=== PATIENT | female | born 1975 | race American Indian/Alaskan Native ===

== ENCOUNTER 2017-03-26 11:45 | Emergency (ER) | payer MEDICAID ==
[2017-03-26 11:53] VITALS: BP 120/91
[2017-03-26] MEDS ORDERED: Sodium Chloride 0.9% 1,000 ML IV ONE (12:29)
[2017-03-26] MEDS ORDERED: Ketorolac 30 MG/ML SDV IVPUSH ONE (12:29)
--- NOTE | 2017-03-26 12:45 | EDM.PDOC ---
ED HPI GENERAL MEDICAL PROBLEM - General Chief Complaint: Back Pain or Injury Stated Complaint: IN BY AMBULANCE Time Seen by Provider: 03/26/17 12:15 Source of Information: Reports: Patient History Limitations: Reports: No Limitations - History of Present Illness INITIAL COMMENTS - FREE TEXT/NARRATIVE: This 41 yo female patient was brought to the ED by [facility] due to right sided back pain. The patient reports her pain started about 2 days ago and has been getting worse since then. The patient reports she has taken Tylenol (1000 mg) with little to no symptom relief. The patient reports she has not been able to get out of bed due to increased pain. Onset: Gradual Duration: Day(s):, Constant, Getting Worse Location: Reports: Back (right flank pain) Quality: Reports: Ache, Sharp Severity: Moderate Improves with: Reports: None Worsens with: Reports: None Context: Reports: Other Associated Symptoms: Reports: No Other Symptoms Right Hip Pain Score (Numeric/FACES): 7 - Related Data Allergies Allergy/AdvReac Type Severity Reaction Status Date / Time No Known Allergies Allergy Verified 03/26/17 11:47 Home Meds: Home Meds metFORMIN [metFORMIN XR] 500 mg PO DAILY 01/03/14 [History] Mirtazapine [Remeron] 15 mg PO BEDTIME 10/15/14 [History] Gabapentin [Neurontin] 600 mg PO TID 05/26/16 [History] buPROPion HCl [Wellbutrin Sr] 300 mg PO DAILY 03/26/17 [History] Past Medical History Musculoskeletal History: Reports: Back Pain, Chronic, Fracture Psychiatric History: Reports: Anxiety, Depression Endocrine/Metabolic History: Reports: Diabetes, Type II - Infectious Disease History Infectious Disease History: Reports: Hepatitis C - Past Surgical History GI Surgical History: Reports: Cholecystectomy Social & Family History - Family History Family Medical History: Noncontributory - Tobacco Use Smoking Status *Q: Former Smoker Years of Tobacco use: 20 Used Tobacco, but Quit: Yes Month Tobacco Last Used: ? Second Hand Smoke Exposure: Yes - Caffeine Use Caffeine Use: Reports: Coffee - Alcohol Use Days Per Week of Alcohol Use: 0 - Recreational Drug Use Recreational Drug Use: Yes Drug Use in Last 12 Months: Yes Recreational Drug Type: Reports: Marijuana/Hashish Recreational Drug Use Frequency: Weekly ED ROS GENERAL - Review of Systems Review Of Systems: ROS reveals no pertinent complaints other than HPI. ED EXAM,LOWER BACK PAIN/INJURY - Physical Exam Exam: See Below Exam Limited By: No Limitations General Appearance: Alert, WD/WN, Moderate Distress Eye Exam: Bilateral Eye: EOMI, Normal Inspection, PERRL Ears: Normal External Exam, Normal Canal, Hearing Grossly Normal, Normal TMs Nose: Normal Inspection, Normal Mucosa, No Blood Throat/Mouth: Normal Inspection, Normal Lips, Normal Teeth, Normal Gums, Normal Oropharynx, Normal Voice, No Airway Compromise Head: Atraumatic, Normocephalic Neck: Normal Inspection, Supple, Non-Tender, Full Range of Motion Respiratory/Chest: No Respiratory Distress, Lungs Clear, Normal Breath Sounds, No Accessory Muscle Use, Chest Non-Tender Cardiovascular: Normal Peripheral Pulses, Regular Rate, Rhythm, No Edema, No Gallop, No JVD, No Murmur, No Rub GI/Abdominal: Normal Bowel Sounds, Soft, Tender (right side) (Female) Exam: Deferred Rectal (Female) Exam: Deferred Back Exam: CVA Tenderness (R) Extremities: Normal Inspection, Normal Range of Motion, Non-Tender, No Pedal Edema, Normal Capillary Refill Neurological: Alert, Normal Mood/Affect, Normal Dorsiflexion, CN II-XII Intact, Normal Plantar Flexion, Normal Gait, Normal Reflexes, No Motor/Sensory Deficits , Oriented x 3 Psychiatric: Normal Affect, Normal Mood Skin Exam: Warm, Dry, Intact, Normal Color, No Rash Lymphatic: No Adenopathy Course - Vital Signs Last Recorded V/S: Last Vital Signs Temp 36.5 C 03/26/17 11:50 Pulse 76 03/26/17 11:50 Resp 20 03/26/17 11:50 BP 120/91 H 03/26/17 11:50 Pulse Ox 99 03/26/17 11:50 - Orders/Labs/Meds Orders: Active Orders 24 hr Category Date Time Status Abdomen Pelvis wo Cont [CT] Urgent Exams 03/26/17 12:30 Ordered Lumbar Spine wo Cont [CT] Urgent Exams 03/26/17 12:30 Ordered Labs: Laboratory Tests 03/26/17 03/26/17 03/26/17 Range/Units 12:04 12:04 12:04 Urine Color Light yellow (YELLOW) Urine Appearance Turbid (CLEAR) Urine pH 6.5 (5.0-9.0) Ur Specific [place] 1.010 (1.005-1.030) Urine Protein Negative (NEGATIVE) Urine Glucose (UA) Negative (NEGATIVE) Urine Ketones Negative (NEGATIVE) Urine Occult Blood Trace-intact H (NEGATIVE) Urine Nitrite Positive H (NEGATIVE) Urine Bilirubin Negative (NEGATIVE) Urine Urobilinogen 0.2 (0.2-1.0) mg/dL Ur Leukocyte Esterase Moderate H (NEGATIVE) Urine RBC 5-10 H /HPF Urine WBC 20-30 H (0-5/HPF) /HPF Ur Epithelial Cells Moderate H /HPF Urine Bacteria Many H (0-FEW/HPF) /HPF Urine Mucus Few H /LPF Urine HCG, Qual Negative Urine Opiates Screen Negative (NEGATIVE) Ur Oxycodone Screen Negative (NEGATIVE) Urine Methadone Screen Negative (NEGATIVE) Ur Barbiturates Screen Negative (NEGATIVE) U Tricyclic Antidepress Negative (NEGATIVE) Ur Phencyclidine Scrn Negative (NEGATIVE) Ur Amphetamine Screen Negative (NEGATIVE) U Methamphetamines Scrn Negative (NEGATIVE) Urine MDMA Screen Negative (NEGATIVE) U Benzodiazepines Scrn Negative (NEGATIVE) Urine Cocaine Screen Negative (NEGATIVE) U Marijuana (THC) Screen Positive H (NEGATIVE) Meds: Medications Discontinued Medications Generic Name Dose Route Start Last Admin Trade Name Freq PRN Reason Stop Dose Admin Hydromorphone HCl 0.5 mg 03/26/17 13:32 03/26/17 13:37 Dilaudid IVPUSH 03/26/17 13:33 0.5 mg ONETIME ONE Administration Sodium Chloride 1,000 mls @ 999 mls/hr 03/26/17 12:29 03/26/17 12:42 Normal Saline IV 03/26/17 13:29 999 mls/hr .BOLUS ONE Administration Ketorolac Tromethamine 30 mg 03/26/17 12:29 03/26/17 12:42 Toradol IVPUSH 03/26/17 12:30 30 mg ONETIME ONE Administration Departure - Departure Time of Disposition: 14:13 Disposition: Home, Self-Care 01 Condition: Fair Clinical Impression: Strain of muscle, fascia and tendon of lower back, initial encounter UTI (urinary tract infection) Qualifiers: Urinary tract infection type: site unspecified Hematuria presence: with hematuria Qualified Code(s): N39.0 - Urinary tract infection, site not specified ; R31.9 - Hematuria, unspecified - Discharge Information Instructions: Muscle Strain, [id number], Urinary Tract Infection, Adult, Easy -to-Read Forms: ED Department Discharge Care Plan Goals: The patient was advised of the examination, lab and CT results during the visit. The patient was given an IV dose of Toradol and an IV dose of Dilaudid while in the ED. The patient was discharged with a script for Toradol (10 mg) # 20 to take 1 by mouth every 6 hours, Flexeril (10 mg) #16 to take 1 by mouth at bedtime as needed and Cipro (500 mg) #6 to take 1 by mouth 2 times per day for 3 days. The patient should avoid heavy lifting and excessive movement. If the patient has any additional symptoms or concerns, the patient should follow-up with her primary care facility or return to the emergency department. - My Orders Last 24 Hours: My Active Orders 03/26/17 12:30 Abdomen Pelvis wo Cont [CT] Urgent Lumbar Spine wo Cont [CT] Urgent - Assessment/Plan Last 24 Hours: My Active Orders 03/26/17 12:30 Abdomen Pelvis wo Cont [CT] Urgent Lumbar Spine wo Cont [CT] Urgent
[2017-03-26] MEDS ORDERED: HYDROmorphone 1 MG/ML Syringe IVPUSH ONE (13:32)
== END 2017-03-26 14:18 | disposition home or self-care (01) ==
LOC: DL.ED 11:45
DX: S39.012A Strain of muscle, fascia and tendon of lower back, initial encounter (principal); N39.0 Urinary tract infection, site not specified; F41.9 Anxiety disorder, unspecified; F32.9 Major depressive disorder, single episode, unspecified; E11.9 Type 2 diabetes mellitus without complications; Z79.899 Other long term (current) drug therapy; Z87.891 Personal history of nicotine dependence; Z90.49 Acquired absence of other specified parts of digestive tract; X58.XXXA Exposure to other specified factors, initial encounter
CPT/HCPCS: 72131; 74176; 80305; 81001; 81025; 96361; 96374; 96375; 99284; J1170; J1885; J7030

== ENCOUNTER 2019-06-07 14:19 | Emergency (ER) | payer MEDICAID, OTHER ==
[2019-06-07 14:57] VITALS: BP 124/73; PULSE 96
[2019-06-07] MEDS ORDERED: Acetaminophen/HYDROcodone 325-10 MG Tab PO ONE (15:30)
--- NOTE | 2019-06-07 15:47 | EDM.PDOC ---
Scribed by Sarah Castaneda 06/07/19 1538 for Madyson Enamorado MD ED HPI GENERAL MEDICAL PROBLEM - General Chief Complaint: Lower Extremity Injury/Pain Stated Complaint: SPRAINED RT ANKLE Time Seen by Provider: 06/07/19 14:56 Source of Information: Reports: Patient, RN, RN Notes Reviewed History Limitations: Reports: No Limitations - History of Present Illness INITIAL COMMENTS - FREE TEXT/NARRATIVE: Patient presents to the ER by POV stating that she fell yesterday 06/06/2019 down a couple of stairs, "sprained my ankle. Patient's daughter wrapped it up and I kept ice on it and elevated it". She is still having pain and unable to stand on it today. Appears bruised at top and side of foot swollen. Onset Date: 06/06/19 Duration: Getting Worse Location: Reports: Lower Extremity, Right Quality: Reports: Ache Severity: Severe Improves with: Reports: None Worsens with: Reports: None Associated Symptoms: Reports: No Other Symptoms - Related Data Allergies Allergy/AdvReac Type Severity Reaction Status Date / Time No Known Allergies Allergy Verified 03/26/17 11:47 Home Meds: Home Meds metFORMIN [metFORMIN XR] 500 mg PO DAILY 01/03/14 [History] Mirtazapine [Remeron] 15 mg PO BEDTIME 10/15/14 [History] Gabapentin [Neurontin] 600 mg PO TID 05/26/16 [History] buPROPion HCl [Wellbutrin Sr] 300 mg PO DAILY 03/26/17 [History] Past Medical History Musculoskeletal History: Reports: Back Pain, Chronic, Fracture Psychiatric History: Reports: Anxiety, Depression Endocrine/Metabolic History: Reports: Diabetes, Type II - Infectious Disease History Infectious Disease History: Reports: Hepatitis C - Past Surgical History GI Surgical History: Reports: Cholecystectomy Female Surgical History: Reports: Hysterectomy Social & Family History - Family History Family Medical History: Noncontributory - Caffeine Use Caffeine Use: Reports: Coffee - Living Situation & Occupation Living situation: Reports: with Family Occupation: Disabled Review of Systems - Review of Systems Review Of Systems: ROS reveals no pertinent complaints other than HPI. ED EXAM, GENERAL - Physical Exam Exam: See Below Exam Limited By: No Limitations General Appearance: Alert, WD/WN, No Apparent Distress Head: Atraumatic, Normocephalic Neck: Normal Inspection, Non-Tender, Full Range of Motion Respiratory/Chest: No Respiratory Distress Cardiovascular: Normal Peripheral Pulses Extremities: No Pedal Edema, Normal Capillary Refill, Joint Swelling (Rt lateral ankle w/bruising. Skin is intact.). No: Increased Warmth, Mottled, Pallor, Redness Neurological: Alert, Oriented, No Motor/Sensory Deficits Psychiatric: Normal Mood Skin Exam: Warm, Dry, Intact, Normal Color, No Rash ED TRAUMA EXTREMITY PROCEDURES - Splinting Right Lower Extremity Splint Site: Rt ankle Pre-Procedure NV Status: Normal Post-Procedure NV Status: Normal Splint Material: Fiberglass Splint Design: Posterior Applied & Form Fitted By: Nurse Provider Post-Splint Application NV Check: NV Status Normal, Good Position Complications: No Course - Vital Signs Last Recorded V/S: Last Vital Signs Temp 97.1 F 06/07/19 14:53 Pulse 96 06/07/19 14:53 Resp 18 06/07/19 14:53 BP 124/73 06/07/19 14:53 Pulse Ox 97 06/07/19 14:53 - Orders/Labs/Meds Orders: Active Orders 24 hr Category Date Time Status Splinting [RC] ASDIRECTED Care 06/07/19 15:31 Active Ankle Min 3V Rt [CR] Urgent Exams 06/07/19 15:10 Taken DME for Discharge [COMM] Routine Oth 06/07/19 15:32 Ordered Meds: Medications Discontinued Medications Generic Name Dose Route Start Last Admin Trade Name Freq PRN Reason Stop Dose Admin Hydrocodone Bitart/Acetaminophen 1 tab 06/07/19 15:30 Peck 325-10 Mg PO 06/07/19 15:31 ONETIME ONE - Radiology Interpretation Free Text/Narrative:: [facility] Final Radiology Report Call: [phone] assistance Online chat: [email or web address] Name: ASPEN PALOMARES Age: 44Years F Date: 06/07/2019 SSN: -- : [id number] Study: XR ANKLE COMPLETE MIN 3 VIEWS RIGHT Requesting Physician: MADYSON ENAMORADO Images: 3 Addl Studies: Provided Clinical History: Contrast: Contrast Medium: Contrast Amount: Contrast Method: CONFIDENTIALITY STATEMENT This report is intended only for use by the referring physician, and only in accordance with law. If you received this in error, call [phone]. Page 1 of 1 PROCEDURE INFORMATION: Exam: XR Right Ankle Exam date and time: 06/07/2019 3:12 PM Clinical history: 44 years old, female; Other: Fall/pain TECHNIQUE: Imaging protocol: XR Right ankle. Views: 3 or more views. COMPARISON: No relevant prior studies available. FINDINGS: Bones/joints: There is an oblique fracture through the distal fibular shaft. The mortise joint space is symmetric. There is a noninflamed plantar enthesophyte. Soft tissues: There is moderate soft tissue swelling. IMPRESSION: Acute oblique distal fibular fracture with soft tissue swelling. Thank you for allowing us to participate in the care of your patient. Dictated and Authenticated by: Scot Schaefer MD 06/07/2019 3:33 PM Central Time ([place] & [place]) Departure - Departure Time of Disposition: 15:35 Disposition: Home, Self-Care 01 Condition: Good Clinical Impression: Closed fracture of distal fibula Qualifiers: Encounter type: initial encounter Fracture morphology: other fracture Laterality: right Qualified Code(s): S82.831A - Other fracture of upper and lower end of right fibula, initial encounter for closed fracture - Discharge Information *PRESCRIPTION DRUG MONITORING PROGRAM REVIEWED*: Not Applicable *COPY OF PRESCRIPTION DRUG MONITORING REPORT IN PATIENT SHAYLA: Not Applicable Instructions: Ankle Fracture, [id number], Cast or Splint Care, Adult, Crutch Use, Adult, [id number] Forms: ED Department Discharge Additional Instructions: Rx: Peck (Hydrocodone) 5mg/325mg *Do not drive while under the influence of this medication. Rest and elevate the right ankle. Use crutches, no weight bearing. Do not remove the splint. Call [phone] to make an ER follow up appointment with Dr. Simran Olivia for care of your ankle fracture. - My Orders Last 24 Hours: My Active Orders 06/07/19 15:10 Ankle Min 3V Rt [CR] Urgent 06/07/19 15:31 Splinting [RC] ASDIRECTED 06/07/19 15:32 DME for Discharge [COMM] Routine - Assessment/Plan Last 24 Hours: My Active Orders 06/07/19 15:10 Ankle Min 3V Rt [CR] Urgent 06/07/19 15:31 Splinting [RC] ASDIRECTED 06/07/19 15:32 DME for Discharge [COMM] Routine I have read and agree with the documentation that has been completed regarding this visit. By signing this record, I attest that the documentation was completed in my physical presence and is an accurate record of the encounter.
== END 2019-06-07 16:13 | disposition home or self-care (01) ==
LOC: DL.ED 14:19
DX: S82.831A Other fracture of upper and lower end of right fibula, initial encounter for closed fracture (principal); E11.9 Type 2 diabetes mellitus without complications; F41.9 Anxiety disorder, unspecified; F32.9 Major depressive disorder, single episode, unspecified; Z79.84 Long term (current) use of oral hypoglycemic drugs; Z79.899 Other long term (current) drug therapy; W10.9XXA Fall (on) (from) unspecified stairs and steps, initial encounter
CPT/HCPCS: 29515; 73610; 99283; 99284; A9270

== ENCOUNTER 2021-02-08 23:49 | Emergency (ER) | payer MEDICAID ==
[2021-02-09 00:18] VITALS: BP 110/75; PULSE 93
[2021-02-09] MEDS ORDERED: cefTRIAXone 1 GM, Lidocaine 1% 2.1 ML IM ONE ×2 (00:29)
[2021-02-09 00:33] LABS: ANION GAP 15.9 mEq/L (7-13); CHLORIDE,CL 107 mmol/L (98-107); SODIUM,NA 144 mmol/L (136-145)
[2021-02-09] MEDS ORDERED: MVI, Adult with Vitamin K 10 ML, Folic Acid 1 MG, Thiamine 100 MG in Lactated Ringers 1... IV ONE ×4 (00:50)
[2021-02-09] MEDS ORDERED: Potassium Chloride 10 MEQ Tab.ER PO ONE (00:50)
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
== END 2021-02-09 02:45 ==
LOC: DL.ED 23:49
DX: F10.129 Alcohol abuse with intoxication, unspecified (principal); H60.311 Diffuse otitis externa, right ear; D64.9 Anemia, unspecified; E87.6 Hypokalemia; E11.9 Type 2 diabetes mellitus without complications; Z79.84 Long term (current) use of oral hypoglycemic drugs; Y90.8 Blood alcohol level of 240 mg/100 ml or more
CPT/HCPCS: 36415; 80053; 80305; 80307; 85025; 96365; 96372; 99284; A9270; J0696; J3411; J7120; J3490

== ENCOUNTER 2021-02-09 12:39 | Emergency (ER) | payer MEDICAID ==
[2021-02-09] MEDS ORDERED: Ketorolac 30 MG/ML SDV IVPUSH ONE (13:18)
[2021-02-09] MEDS ORDERED: diphenhydrAMINE 50 MG/ML SDV IVPUSH ONE (13:18)
[2021-02-09] MEDS ORDERED: Lactated Ringers 1,000 ML IV ONE (13:18)
[2021-02-09] MEDS ORDERED: Morphine 4 MG/ML Syringe IVPUSH ONE (13:19)
[2021-02-09] MEDS ORDERED: Sodium Chloride 0.9% 10 ML Syringe FLUSH PRN ×2 (13:19→16:10)
[2021-02-09] MEDS ORDERED: cefTRIAXone 2 GM in Sodium Chloride 0.9% 100 ML IV ONE (13:20)
[2021-02-09 13:53] LABS: ANION GAP 17.1 mEq/L (7-13); CHLORIDE,CL 103 mmol/L (98-107); SODIUM,NA 139 mmol/L (136-145)
--- NOTE | 2021-02-09 14:03 | EDM.PDOC ---
ED HPI GENERAL MEDICAL PROBLEM - General Chief Complaint: ENT Problem Stated Complaint: INFECTED BUG BITE ON EAR / VERY SWOLLEN Time Seen by Provider: 02/09/21 13:10 Source of Information: Reports: Patient History Limitations: Reports: No Limitations - History of Present Illness INITIAL COMMENTS - FREE TEXT/NARRATIVE: He comes emergency department today from the local shelter for follow-up from a recent ER visit to receive blood transfusion as well as possible antibiotic therapy. This patient was seen in the emergency department last night and diagnosed with a impressive otitis externa for which she was placed on doxycycline for. Following a bug bite to her right ear. She is also noted to be quite anemic with a hemoglobin in the mid sixes. Today she was coming back for her blood transfusion and her pain is much worse. She relates that the swelling has gotten worse as well. She has no fever or chills. No headache. She has not taken anything for the pain. She has no difficulty hearing. No difficulty swallowing. No chest pain no shortness of breath or difficulty breathing. No weakness dizziness lightheadedness. She has not been swimming at all lately. She was placed on doxycycline for an otitis externa although she has not started any of her anti-biotics yet for it. Right Ear Pain Score (Numeric/FACES): 10 - Related Data Allergies Allergy/AdvReac Type Severity Reaction Status Date / Time No Known Allergies Allergy Verified 03/26/17 11:47 Home Meds: Home Meds metFORMIN [metFORMIN XR] 500 mg PO DAILY 01/03/14 [History] Mirtazapine [Remeron] 15 mg PO BEDTIME 10/15/14 [History] Gabapentin [Neurontin] 600 mg PO TID 05/26/16 [History] buPROPion HCL [Wellbutrin Sr] 300 mg PO DAILY 03/26/17 [History] Past Medical History - Past Health History Medical/Surgical History: Denies Medical/Surgical History HEENT History: Reports: None Cardiovascular History: Reports: None Respiratory History: Reports: None Gastrointestinal History: Reports: None Genitourinary History: Reports: None 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: Musculoskeletal History: Reports: Back Pain, Chronic, Fracture Neurological History: Reports: None Psychiatric History: Reports: Addiction, Anxiety, Depression Endocrine/Metabolic History: Reports: Diabetes, Type II Hematologic History: Reports: None Immunologic History: Reports: None Dermatologic History: Reports: None - Infectious Disease History Infectious Disease History: Reports: Hepatitis C - Past Surgical History GI Surgical History: Reports: Cholecystectomy Female Surgical History: Reports: Hysterectomy Social & Family History - Family History Family Medical History: No Pertinent Family History - Tobacco Use Tobacco Use Status *Q: Never Tobacco User - Caffeine Use Caffeine Use: Reports: Coffee - Alcohol Use Days Per Week of Alcohol Use: 7 Number of Drinks Per Day: 3 Total Drinks Per Week: 21 - Recreational Drug Use Recreational Drug Use: No - Living Situation & Occupation Living situation: Reports: with Family Occupation: Disabled ED ROS ENT - Review of Systems Review Of Systems: Comprehensive ROS is negative, except as noted in HPI. ED EXAM, ENT - Physical Exam Exam: See Below Exam Limited By: No Limitations General Appearance: Alert, WD/WN, Moderate Distress Eye Exam: Bilateral Eye: EOMI, PERRL Ears: Normal Canal (Bilaterally), Hearing Grossly Normal, Normal TMs, Other (There is no bogginess to either of the mastoids. ). No: Normal External Exam (The left ear is unremarkable. The right ear almost the entire exterior surface is very erythematous swollen. At the very top of the pinna there is a large bullae about the size of a quarter. The ear canal is normal. There is no swelling induration. The tympanic membrane is clearly identified.) Nose: Normal Inspection, Normal Mucousa Mouth/Throat: Normal Inspection, Normal Gums, Normal Lips, Normal Teeth Head: Atraumatic, Normocephalic Neck: Normal Inspection, Supple, Non-Tender Respiratory/Chest: No Respiratory Distress, Lungs Clear, Normal Breath Sounds, No Accessory Muscle Use, Chest Non-Tender Cardiovascular: Normal Peripheral Pulses, Regular Rate, Rhythm GI/Abdominal: Normal Bowel Sounds, Soft, Non-Tender (Female) Exam: Deferred Rectal (Female) Exam: Deferred Course - Vital Signs Last Recorded V/S: Last Vital Signs Temp 98.3 F 02/09/21 17:11 Pulse 104 H 02/09/21 17:11 Resp 16 02/09/21 17:11 BP 139/88 02/09/21 17:11 Pulse Ox 96 02/09/21 17:11 - Orders/Labs/Meds Orders: Active Orders 24 hr Category Date Time Status CULTURE WOUND [RM] Stat Lab 02/09/21 16:07 Received Peripheral IV Insertion Adult [OM.PC] Stat Oth 02/09/21 16:10 Ordered Transfuse RBC [Transfuse Red Blood Cells] [COMM] Stat [facility] 02/09/21 16:11 Ordered Labs: Laboratory Tests 02/09/21 02/09/21 02/09/21 Range/Units 00:07 13:28 13:28 WBC 6.4 (5.0-10.0) 10^3/uL RBC 2.94 L (4.2-5.4) 10^6/uL Hgb 6.5 L* (12.0-16.0) g/dL Hct 22.5 L (37.0-47.0) % MCV 76.5 L (80-100) fL MCH 22.1 L (27.0-34.0) pg MCHC 28.9 L (33.0-35.0) g/dL Plt Count 69 L (150-450) 10^3/uL Neut % (Auto) 59.3 (42.2-75.2) % Lymph % (Auto) 21.1 (20.5-50.1) % Roberts % (Auto) 19.2 H (2-8) % Eos % (Auto) 0.2 L (1.0-3.0) % Baso % (Auto) 0.2 (0.0-1.0) % Neutrophils % (Manual) 63 (42-75) % Band Neutrophils % 3 % Lymphocytes % (Manual) 23 (20-50) % Monocytes % (Manual) 10 H (2-8) % Eosinophils % (Manual) 1 (1-3) % Hypochromasia 3+ marked Poikilocytosis 1+ slight Microcytosis 3+ marked Target Cells 1+ slight Sodium 139 (136-145) mmol/L Potassium 3.1 L (3.5-5.1) mmol/L Chloride 103 (98-107) mmol/L Carbon Dioxide 22 (21-32) mmol/L Anion Gap 17.1 H (7-13) mEq/L BUN 7 (7-18) mg/dL Creatinine 0.59 (0.55-1.02) mg/dL Est Cr Clr Drug Dosing 115.10 mL/min Estimated GFR (MDRD) > 60 Glucose 92 (70-99) mg/dL Lactic Acid (0.4-2.0) mmol/L Calcium 7.5 L (8.5-10.1) mg/dL Phosphorus (2.6-4.7) mg/dL Magnesium (1.8-2.4) mg/dL Iron (50-175) ug/dL TIBC (250-450) ug/dL % Saturation (20.0-50.0) % Ferritin (8-252) mg/mL Total Bilirubin (0.2-1.0) mg/dL Direct Bilirubin (0.0-0.2) mg/dL Indirect Bilirubin AST (15-37) U/L ALT (14-59) U/L Alkaline Phosphatase (46-116) U/L Total Protein (6.4-8.2) g/dL Albumin (3.4-5.0) g/dL Globulin Albumin/Globulin Ratio Vitamin B12 (193-986) pg/mL Folate (8.6-58.9) ng/mL Ethyl Alcohol (0) mg/dL SARS-CoV-2 RNA ([facility]) (NEGATIVE) Blood Type O POSITIVE Gel Antibody Screen Negative Crossmatch See Detail 02/09/21 02/09/21 02/09/21 Range/Units 13:28 13:28 13:28 WBC (5.0-10.0) 10^3/uL RBC (4.2-5.4) 10^6/uL Hgb (12.0-16.0) g/dL Hct (37.0-47.0) % MCV (80-100) fL MCH (27.0-34.0) pg MCHC (33.0-35.0) g/dL Plt Count (150-450) 10^3/uL Neut % (Auto) (42.2-75.2) % Lymph % (Auto) (20.5-50.1) % Roberts % (Auto) (2-8) % Eos % (Auto) (1.0-3.0) % Baso % (Auto) (0.0-1.0) % Neutrophils % (Manual) (42-75) % Band Neutrophils % % Lymphocytes % (Manual) (20-50) % Monocytes % (Manual) (2-8) % Eosinophils % (Manual) (1-3) % Hypochromasia Poikilocytosis Microcytosis Target Cells Sodium (136-145) mmol/L Potassium (3.5-5.1) mmol/L Chloride (98-107) mmol/L Carbon Dioxide (21-32) mmol/L Anion Gap (7-13) mEq/L BUN (7-18) mg/dL Creatinine (0.55-1.02) mg/dL Est Cr Clr Drug Dosing mL/min Estimated GFR (MDRD) Glucose (70-99) mg/dL Lactic Acid 2.7 H* (0.4-2.0) mmol/L Calcium (8.5-10.1) mg/dL Phosphorus (2.6-4.7) mg/dL Magnesium 1.2 L (1.8-2.4) mg/dL Iron 15 L (50-175) ug/dL TIBC 248 L (250-450) ug/dL % Saturation 6.0 L (20.0-50.0) % Ferritin 46 (8-252) mg/mL Total Bilirubin (0.2-1.0) mg/dL Direct Bilirubin (0.0-0.2) mg/dL Indirect Bilirubin AST (15-37) U/L ALT (14-59) U/L Alkaline Phosphatase (46-116) U/L Total Protein (6.4-8.2) g/dL Albumin (3.4-5.0) g/dL Globulin Albumin/Globulin Ratio Vitamin B12 (193-986) pg/mL Folate (8.6-58.9) ng/mL Ethyl Alcohol (0) mg/dL SARS-CoV-2 RNA ([facility]) (NEGATIVE) Blood Type Gel Antibody Screen Crossmatch 02/09/21 02/09/21 02/09/21 Range/Units 13:28 13:28 13:28 WBC (5.0-10.0) 10^3/uL RBC (4.2-5.4) 10^6/uL Hgb (12.0-16.0) g/dL Hct (37.0-47.0) % MCV (80-100) fL MCH (27.0-34.0) pg MCHC (33.0-35.0) g/dL Plt Count (150-450) 10^3/uL Neut % (Auto) (42.2-75.2) % Lymph % (Auto) (20.5-50.1) % Roberts % (Auto) (2-8) % Eos % (Auto) (1.0-3.0) % Baso % (Auto) (0.0-1.0) % Neutrophils % (Manual) (42-75) % Band Neutrophils % % Lymphocytes % (Manual) (20-50) % Monocytes % (Manual) (2-8) % Eosinophils % (Manual) (1-3) % Hypochromasia Poikilocytosis Microcytosis Target Cells Sodium (136-145) mmol/L Potassium (3.5-5.1) mmol/L Chloride (98-107) mmol/L Carbon Dioxide (21-32) mmol/L Anion Gap (7-13) mEq/L BUN (7-18) mg/dL Creatinine (0.55-1.02) mg/dL Est Cr Clr Drug Dosing mL/min Estimated GFR (MDRD) Glucose (70-99) mg/dL Lactic Acid (0.4-2.0) mmol/L Calcium (8.5-10.1) mg/dL Phosphorus 2.5 L (2.6-4.7) mg/dL Magnesium (1.8-2.4) mg/dL Iron (50-175) ug/dL TIBC (250-450) ug/dL % Saturation (20.0-50.0) % Ferritin (8-252) mg/mL Total Bilirubin 0.9 (0.2-1.0) mg/dL Direct Bilirubin 0.6 H (0.0-0.2) mg/dL Indirect Bilirubin 0.3 AST 214 H (15-37) U/L ALT 39 (14-59) U/L Alkaline Phosphatase 221 H (46-116) U/L Total Protein 7.7 (6.4-8.2) g/dL Albumin 2.0 L (3.4-5.0) g/dL Globulin 5.7 Albumin/Globulin Ratio 0.35 Vitamin B12 1117 H (193-986) pg/mL Folate 8.0 L (8.6-58.9) ng/mL Ethyl Alcohol 48 (0) mg/dL SARS-CoV-2 RNA ([facility]) (NEGATIVE) Blood Type Gel Antibody Screen Crossmatch 02/09/21 Range/Units 16:36 WBC (5.0-10.0) 10^3/uL RBC (4.2-5.4) 10^6/uL Hgb (12.0-16.0) g/dL Hct (37.0-47.0) % MCV (80-100) fL MCH (27.0-34.0) pg MCHC (33.0-35.0) g/dL Plt Count (150-450) 10^3/uL Neut % (Auto) (42.2-75.2) % Lymph % (Auto) (20.5-50.1) % Roberts % (Auto) (2-8) % Eos % (Auto) (1.0-3.0) % Baso % (Auto) (0.0-1.0) % Neutrophils % (Manual) (42-75) % Band Neutrophils % % Lymphocytes % (Manual) (20-50) % Monocytes % (Manual) (2-8) % Eosinophils % (Manual) (1-3) % Hypochromasia Poikilocytosis Microcytosis Target Cells Sodium (136-145) mmol/L Potassium (3.5-5.1) mmol/L Chloride (98-107) mmol/L Carbon Dioxide (21-32) mmol/L Anion Gap (7-13) mEq/L BUN (7-18) mg/dL Creatinine (0.55-1.02) mg/dL Est Cr Clr Drug Dosing mL/min Estimated GFR (MDRD) Glucose (70-99) mg/dL Lactic Acid (0.4-2.0) mmol/L Calcium (8.5-10.1) mg/dL Phosphorus (2.6-4.7) mg/dL Magnesium (1.8-2.4) mg/dL Iron (50-175) ug/dL TIBC (250-450) ug/dL % Saturation (20.0-50.0) % Ferritin (8-252) mg/mL Total Bilirubin (0.2-1.0) mg/dL Direct Bilirubin (0.0-0.2) mg/dL Indirect Bilirubin AST (15-37) U/L ALT (14-59) U/L Alkaline Phosphatase (46-116) U/L Total Protein (6.4-8.2) g/dL Albumin (3.4-5.0) g/dL Globulin Albumin/Globulin Ratio Vitamin B12 (193-986) pg/mL Folate (8.6-58.9) ng/mL Ethyl Alcohol (0) mg/dL SARS-CoV-2 RNA ([facility]) Negative (NEGATIVE) Blood Type Gel Antibody Screen Crossmatch Meds: Medications Discontinued Medications Generic Name Dose Route Start Last Admin Trade Name Cecilia PRN Reason Stop Dose Admin Diphenhydramine HCl 25 mg 02/09/21 13:18 02/09/21 13:37 Diphenhydramine 50 Mg/Ml Sdv IVPUSH 02/09/21 13:19 25 mg ONETIME ONE Administration Folic Acid 1 mg 02/09/21 16:22 02/09/21 17:01 Folic Acid 1 Mg Tab PO 02/09/21 16:23 1 mg ONETIME ONE Administration Lactated Ringer's 1,000 mls @ 1,000 mls/hr 02/09/21 13:18 02/09/21 13:38 Ringers, Lactated IV 02/09/21 14:17 1,000 mls/hr .BOLUS ONE Administration Ceftriaxone Sodium 2 gm/ 100 mls @ 200 mls/hr 02/09/21 13:20 02/09/21 13:38 Sodium Chloride IV 02/09/21 13:49 200 mls/hr ONETIME ONE Administration Vancomycin HCl 1,500 mg/ 500 mls @ 333.333 mls/hr 02/09/21 15:20 02/09/21 16:10 Sodium Chloride IV 02/09/21 16:49 333.333 mls/hr ONETIME ONE Administration Magnesium Sulfate 2 gm/ Premix 50 mls @ 25 mls/hr 02/09/21 15:47 02/09/21 17:04 IV 02/09/21 17:46 25 mls/hr ONETIME ONE Administration Potassium Chloride/Sodium Chloride 1,000 mls @ 150 mls/hr 02/09/21 16:30 02/09/21 17:08 Normal Saline With 40 Meq Kcl IV 150 mls/hr ASDIRECTED MARCEL Administration Ketorolac Tromethamine 30 mg 02/09/21 13:18 02/09/21 13:39 Ketorolac 30 Mg/Ml Sdv IVPUSH 02/09/21 13:19 30 mg ONETIME ONE Administration Lorazepam 2 mg 02/09/21 16:14 02/09/21 17:01 Lorazepam 2 Mg/Ml Sdv IVPUSH 02/09/21 16:15 2 mg ONETIME ONE Administration Morphine Sulfate 4 mg 02/09/21 13:19 02/09/21 13:38 Morphine 4 Mg/Ml Syringe IVPUSH 02/09/21 13:20 4 mg ONETIME ONE Administration Multivitamins/Minerals/Vitamin C 1 tab 02/09/21 16:22 02/09/21 17:01 Multivitamin Tab PO 02/09/21 16:23 1 tab NOW STA Administration Pantoprazole Sodium 80 mg 02/09/21 16:11 02/09/21 16:52 Pantoprazole 40 Mg Vial IVPUSH 02/09/21 16:12 80 mg .BOLUS ONE Administration Potassium Chloride 40 meq 02/09/21 14:42 02/09/21 16:04 Potassium Chloride 10% 20 Meq/15 Ml Soln 15 Ml Ud Cup PO 02/09/21 14:43 40 meq NOW STA Administration Sodium Chloride 10 ml 02/09/21 13:19 02/09/21 13:38 Sodium Chloride 0.9% 10 Ml Syringe FLUSH 10 ml ASDIRECTED PRN Administration Keep Vein Open Sodium Chloride 10 ml 02/09/21 16:10 Sodium Chloride 0.9% 10 Ml Syringe FLUSH ASDIRECTED PRN Keep Vein Open Thiamine HCl 100 mg 02/09/21 16:22 02/09/21 17:21 Thiamine 100 Mg Tab PO 02/09/21 16:23 100 mg ONETIME ONE Administration - Re-Assessments/Exams Free Text/Narrative Re-Assessment/Exam: 02/09/21 Initially upon presentation with the diagnosis last night of otitis externa I was initially concern for malignant otitis externa with the external aspect of the ear. Although upon examination purely the patient has an external cellulitis of the pinna or external aspect of the ear. I do not see any canal swelling irritation exudate. The tympanic membrane is easily identified. IV LR 1 liter wide open Pain medication and benadryl for relaxation. Ceftriaxone 2 grams IVPB vanco 1500mg She was noted to be quite anemic last night which was actually the reason that she was coming to the hospital today to receive blood. I did add anemia studies. THe patient does report that she on a somewhat regular basis not daily has black tarry stools and has been anemic from this in the past. Has never been scoped. She does admit to daily alcohol intake of large quantities as well. I note that she is starting to shake in the ED and have concerns for alcohol withdrawal. She was given oral multivit etc and lorazepam 2 mg IVP. Her potassium is still low she was given oral potassium chloride supplementation. I day her hemoglobin is noted to be 6.5. We will start transfusing her blood at this time and this is most likely chronic as she is not overtly symptomatic with this. Her Hemoccult today is grossly negative as well as Griselda negative. Her magnesium is 1.2. We will replace this with 2 g IV. Her iron studies show severe iron deficiency anemia probably due to chronic low volume blood loss through the GI tract. Her T bili is 0.9 with a marked elevation in her AST at 214 consistent with chronic high-volume alcohol usage. She has also has a folate deficiency. Her ALT 48. I called and spoke with DR. yTrell landin in [place] and reviewed this patient with him for admission. He refuses admission at this time as he feels that the patient should see gastroenterology for her chronic GI bleed for which she is not currently showing any signs off. I called and [facility] [place]. HPI ER course findings and concerns were relayed to him. He accepted the patient in transfer at this time with no new orders I will start a unit of blood as well prior to transfer and give the patient 80mg of protonix. She is comfortable with this plan and her questions answered. THere was no signs of D/Ts and she shakiness has resolved prior to transfer following the ativan. Departure - Departure Time of Disposition: 16:00 Disposition: DC/Tfer to [facility] 02 Clinical Impression: Hypokalemia, Hypomagnesemia Iron deficiency anemia Qualifiers: Iron deficiency anemia type: unspecified iron deficiency Qualified Code(s): D50.9 - Iron deficiency anemia, unspecified Cellulitis of external ear Qualifiers: Laterality: right Qualified Code(s): H60.11 - Cellulitis of right external ear Alcohol withdrawal Qualifiers: Complication of substance-induced condition: uncomplicated Qualified Code(s): F10.230 - Alcohol dependence with withdrawal, uncomplicated - Discharge Information Referrals: PCP,None [Primary Care Provider] - Forms: ED Department Discharge Sepsis Event Note (ED) - Evaluation Sepsis Screening Result: No Definite Risk - My Orders Last 24 Hours: My Active Orders 02/09/21 16:07 CULTURE WOUND [RM] Stat 02/09/21 16:10 Peripheral IV Insertion Adult [OM.PC] Stat 02/09/21 16:11 Transfuse RBC [Transfuse Red Blood Cells] [COMM] Stat - Assessment/Plan Last 24 Hours: My Active Orders 02/09/21 16:07 CULTURE WOUND [RM] Stat 02/09/21 16:10 Peripheral IV Insertion Adult [OM.PC] Stat 02/09/21 16:11 Transfuse RBC [Transfuse Red Blood Cells] [COMM] Stat
[2021-02-09] MEDS ORDERED: Potassium Chloride 10% 20 MEQ/15 ML Soln 15 ML UD Cup PO STA (14:42)
[2021-02-09] MEDS ORDERED: Magnesium Sulfate/Water 2 GM in Premix Bag 1 BAG IV ONE (15:47)
[2021-02-09] MEDS ORDERED: Pantoprazole 40 MG Vial IVPUSH ONE (16:11)
[2021-02-09] MEDS ORDERED: LORazepam 2 MG/ML SDV IVPUSH ONE (16:14)
[2021-02-09] MEDS ORDERED: Thiamine 100 MG Tab PO ONE (16:22)
[2021-02-09] MEDS ORDERED: Multivitamin Tab PO STA (16:22)
[2021-02-09] MEDS ORDERED: Folic Acid 1 MG Tab PO ONE (16:22)
[2021-02-09] MEDS ORDERED: Sodium Chloride 0.9% with KCl 1,000 ML IV SCH (16:30)
[2021-02-09 17:13] VITALS: BP 139/88; PULSE 104
== END 2021-02-09 17:35 ==
LOC: DL.ED 12:39
DX: H60.11 Cellulitis of right external ear (principal); F10.230 Alcohol dependence with withdrawal, uncomplicated; D50.9 Iron deficiency anemia, unspecified; E87.6 Hypokalemia; E83.42 Hypomagnesemia; E11.9 Type 2 diabetes mellitus without complications; Y90.2 Blood alcohol level of 40-59 mg/100 ml; Z79.84 Long term (current) use of oral hypoglycemic drugs; Z20.822 Contact with and (suspected) exposure to COVID-19
CPT/HCPCS: 36415; 36430; 80048; 80076; 80307; 82272; 82607; 82728; 82746; 83540; 83550; 83605; 83735; 84100; 85025; 86850; 86900; 86901; 86920; 86922; 87070; 87635; 96365; 96367; 96375; 99284; 99285; A9270; C9113; J0696; J1200; J1885; J2060; J2270; J3370; J3475; J3480; J7040; J7120; P9016; U0002

== ENCOUNTER 2022-02-22 14:27 | Emergency (ER) | payer MEDICAID, OTHER ==
[2022-02-22] MEDS ORDERED: Pantoprazole 40 MG Vial IVPUSH ONE (14:54)
[2022-02-22] MEDS ORDERED: MVI, Adult with Vitamin K 10 ML, Thiamine 100 MG, Folic Acid 1 MG in Lactated Ringers 1... IV ONE ×4 (14:55)
[2022-02-22 16:04] LABS: ANION GAP 15.9 mEq/L (7-13)
[2022-02-22 16:34] LABS: PTT,PARTIAL THROMBOPLSTIN TIME 37.7 SEC (22.0-34.0)
[2022-02-22] MEDS ORDERED: LORazepam 2 MG/ML SDV IVPUSH ONE (18:04)
[2022-02-22] MEDS ORDERED: Potassium Chloride 20 MEQ in Premix Bag 1 BAG IV ONE (18:26)
[2022-02-22] MEDS ORDERED: Sodium Chloride 0.9% 1,000 ML IV ONE (18:26)
[2022-02-22 19:21] VITALS: BP 114/69; PULSE 89
[2022-02-22] MEDS ORDERED: Potassium Chloride 10 MEQ Tab.ER PO ONE (19:30)
[2022-02-22] MEDS ORDERED: Octreotide 100 MCG/ML SDV IVPUSH ONE (19:31)
[2022-02-22] MEDS ORDERED: Pantoprazole 40 MG in Sodium Chloride 0.9% 100 ML IV SCH (19:45)
[2022-02-22] MEDS ORDERED: Octreotide 100 MCG in Sodium Chloride 0.9% 99 ML IV SCH (19:45)
[2022-02-22 20:16] LABS: AMPHETAMINES,URINE NEGATIVE (NEGATIVE); BARBITURATES,URINE NEGATIVE (NEGATIVE); BENZODIAZEPINE,URINE POSITIVE (NEGATIVE); MDMA (ECSTASY), URINE NEGATIVE (NEGATIVE); METHADONE,URINE NEGATIVE (NEGATIVE); METHAMPHETAMINES,URINE NEGATIVE (NEGATIVE); OPIATES,URINE NEGATIVE (NEGATIVE); OXYCODONE,URINE NEGATIVE (NEGATIVE); PHENCYCLIDINE,URINE NEGATIVE (NEGATIVE); TCA,URINE NEGATIVE (NEGATIVE)
== END 2022-02-22 20:30 ==
LOC: DL.ED 14:27
DX: K70.31 Alcoholic cirrhosis of liver with ascites (principal); E80.6 Other disorders of bilirubin metabolism; K92.1 Melena; E11.9 Type 2 diabetes mellitus without complications; Z90.49 Acquired absence of other specified parts of digestive tract; Z90.710 Acquired absence of both cervix and uterus; Z20.822 Contact with and (suspected) exposure to COVID-19
CPT/HCPCS: 36415; 74176; 80053; 80305; 80307; 81001; 82140; 82150; 82248; 82272; 83690; 83735; 83880; 84484; 84703; 85025; 85610; 85730; 86140; 86850; 86900; 86901; 87635; 93005; 96365; 96366; 96367; 96368; 96374; 96375; 96376; 99285; A9270; C9113; J2060; J2354; J3411; J3480; J3490; J7030; J7120; U0002

== ENCOUNTER 2022-03-20 17:17 | Emergency (ER) | payer MEDICAID ==
[2022-03-20 19:15] LABS: PTT,PARTIAL THROMBOPLSTIN TIME 29.3 SEC (22.0-34.0)
[2022-03-20] MEDS: Sodium Chloride 0.9% 10 ML Syringe FLUSH PRN (19:20)
[2022-03-20 19:23] LABS: CHLORIDE,CL 101 mmol/L (98-107); SODIUM,NA 133 mmol/L (136-145)
[2022-03-20 19:34] LABS: AMPHETAMINES,URINE NEGATIVE (NEGATIVE); BARBITURATES,URINE NEGATIVE (NEGATIVE); BENZODIAZEPINE,URINE NEGATIVE (NEGATIVE); MDMA (ECSTASY), URINE NEGATIVE (NEGATIVE); METHADONE,URINE NEGATIVE (NEGATIVE); METHAMPHETAMINES,URINE NEGATIVE (NEGATIVE); OPIATES,URINE NEGATIVE (NEGATIVE); OXYCODONE,URINE NEGATIVE (NEGATIVE); PHENCYCLIDINE,URINE NEGATIVE (NEGATIVE); TCA,URINE NEGATIVE (NEGATIVE)
[2022-03-20 19:44] LABS: ESTIMATED GFR 45 mL/min (>=60)
[2022-03-20] MEDS: Pantoprazole 40 MG Vial IVPUSH ONE (19:54)
[2022-03-20] MEDS: Sodium Chloride 0.9% 1,000 ML IV ONE (19:55)
[2022-03-20] MEDS: Iopamidol 612 MG/ML 100 ML Bottle IVPUSH ONE (21:18)
[2022-03-21] MEDS ORDERED: Sodium Chloride 0.9% 250 ML IV SCH (00:15)
[2022-03-21] MEDS: Potassium Chloride 20 MEQ in Premix Bag 1 BAG IV ONE (00:23)
[2022-03-21] MEDS ORDERED: Potassium Chloride 20 MEQ in Premix Bag 1 BAG IV ONE (00:24)
[2022-03-21] MEDS ORDERED: Pantoprazole 40 MG Vial IVPUSH ONE (00:39)
[2022-03-21] MEDS ORDERED: Octreotide 100 MCG in Sodium Chloride 0.9% 100 ML IV ONE (00:39)
[2022-03-21] MEDS: cefTRIAXone 1 GM in Sodium Chloride 0.9% 50 ML IV ONE (01:21)
[2022-03-21] MEDS: Octreotide 100 MCG/ML SDV IVPUSH ONE (01:21)
[2022-03-21] MEDS: Ondansetron 4 MG/2 ML SDV IVPUSH ONE (01:41)
[2022-03-21] MEDS: fentaNYL 100 MCG/2 ML SDV IVPUSH ONE (01:41)
[2022-03-21 01:50] VITALS: BP 93/41; PULSE 84
== END 2022-03-21 02:00 ==
LOC: DL.ED 17:17
DX: K70.31 Alcoholic cirrhosis of liver with ascites (principal); K92.1 Melena; D50.9 Iron deficiency anemia, unspecified; E11.9 Type 2 diabetes mellitus without complications; E87.6 Hypokalemia; E80.6 Other disorders of bilirubin metabolism; Z20.822 Contact with and (suspected) exposure to COVID-19
CPT/HCPCS: 36415; 36430; 74177; 80053; 80305-QW; 80307; 81001; 82272; 83605; 83735; 84132; 84484; 84703; 85014; 85018; 85025; 85610; 85730; 86140; 86850; 86900; 86901; 86920; 86922; 96361; 96365; 96366; 96368; 96375; 99284; 99285-25; C9113; J0696; J2354-JA; J2405; J3010; J3480; J3490; J7030; P9016; Q9967; U0002

== ENCOUNTER 2022-05-05 15:30 | Emergency (ER) | payer MEDICAID ==
[2022-05-05 16:06] VITALS: BP 128/72; PULSE 101
[2022-05-05] MEDS ORDERED: Sodium Chloride 0.9% 10 ML Syringe FLUSH PRN (16:17)
[2022-05-05 16:57] LABS: ANION GAP 12.9 mEq/L (7-13); CHLORIDE,CL 105 mmol/L (98-107); SODIUM,NA 138 mmol/L (136-145)
[2022-05-05 17:01] LABS: ESTIMATED GFR 52 mL/min (>=60)
[2022-05-05] MEDS ORDERED: Iopamidol 612 MG/ML 100 ML Bottle IVPUSH ONE (17:10)
[2022-05-05] MEDS ORDERED: Potassium Chloride 10 MEQ Tab.ER PO ONE (17:14)
[2022-05-05] MEDS ORDERED: NS + KCl 20mEq/L 1,000 ML IV SCH (17:15)
[2022-05-05] MEDS ORDERED: HYDROmorphone 0.5 MG/0.5 ML Syringe IVPUSH ONE (17:52)
[2022-05-05 20:21] LABS: AMPHETAMINES,URINE NEGATIVE (NEGATIVE); BARBITURATES,URINE NEGATIVE (NEGATIVE); BENZODIAZEPINE,URINE NEGATIVE (NEGATIVE); MDMA (ECSTASY), URINE NEGATIVE (NEGATIVE); METHADONE,URINE NEGATIVE (NEGATIVE); METHAMPHETAMINES,URINE NEGATIVE (NEGATIVE); OPIATES,URINE POSITIVE (NEGATIVE); OXYCODONE,URINE NEGATIVE (NEGATIVE); PHENCYCLIDINE,URINE NEGATIVE (NEGATIVE); TCA,URINE NEGATIVE (NEGATIVE)
== END 2022-05-05 21:03 ==
LOC: DL.ED 15:30
DX: K72.90 Hepatic failure, unspecified without coma (principal); K92.1 Melena; D64.9 Anemia, unspecified; E87.6 Hypokalemia; I10 Essential (primary) hypertension; E11.9 Type 2 diabetes mellitus without complications; E03.9 Hypothyroidism, unspecified; Z88.5 Allergy status to narcotic agent
CPT/HCPCS: 36415; 74177; 80053; 80305; 80307; 81025; 82140; 82272; 83605; 83690; 83735; 83880; 84100; 85025; 85610; 86140; 96365; 96366; 96375; 99285; A9270; J1170; J3480; J3490; Q9967

== ENCOUNTER 2023-07-27 23:57 | Emergency (ER) | payer MEDICAID ==
[2023-07-28] MEDS ORDERED: Sodium Chloride 0.9% 1,000 ML IV ONE (00:11)
[2023-07-28] MEDS ORDERED: Sodium Chloride 0.9% 10 ML Syringe FLUSH PRN (00:11)
[2023-07-28 01:09] VITALS: BP 131/73; PULSE 96
== END 2023-07-28 02:04 | disposition left against medical advice (07) ==
LOC: DL.ED 23:57
DX: Z53.21 Procedure and treatment not carried out due to patient leaving prior to being seen by health care provider (principal)
CPT/HCPCS: 72220

== ENCOUNTER 2024-03-24 01:58 | Emergency (ER) | payer MEDICAID, OTHER ==
[2024-03-24] MEDS: Aspirin 81 MG Tab.Chew PO ONE (02:19)
[2024-03-24 02:33] LABS: BASOPHILS PERCENT AUTO 0.3 % (0.0-1.0); EOSINOPHILS PERCENT AUTO 2.5 % (1.0-3.0); HEMATOCRIT 36.6 % (37.0-47.0); HEMOGLOBIN 12.7 g/dL (12.0-16.0); LYMPHOCYTES PERCENT AUTO 31.2 % (20.5-50.1); MEAN CORPUSCULAR HEMOGLOBIN 31.7 pg (27.0-34.0); MEAN CORPUSCULAR HGB CONC 34.7 g/dL (33.0-35.0); MEAN CORPUSCULAR VOLUME 91.3 fL (80-100); MONOCYTES PERCENT AUTO 8.4 % (2-8); NEUTROPHILS PERCENT AUTO 57.6 % (42.2-75.2); PLATELET COUNT,PLT 154 10^3/uL (150-450); RED BLOOD CELL COUNT 4.01 10^6/uL (4.2-5.4); WHITE BLOOD CELL COUNT,WBC 6.7 10^3/uL (5.0-10.0)
[2024-03-24 02:43] LABS: AMPHETAMINES,URINE NEGATIVE (NEGATIVE); APPEARANCE,URINE CLEAR (CLEAR); BARBITURATES,URINE NEGATIVE (NEGATIVE); BENZODIAZEPINE,URINE NEGATIVE (NEGATIVE); BILIRUBIN,URINE NEGATIVE (NEGATIVE); COLOR,URINE YELLOW (YELLOW); GLUCOSE,URINE NEGATIVE (NEGATIVE); KETONES,URINE NEGATIVE (NEGATIVE); LEUKOCYTE ESTERASE,URINE NEGATIVE (NEGATIVE); MDMA (ECSTASY), URINE NEGATIVE (NEGATIVE); METHADONE,URINE NEGATIVE (NEGATIVE); METHAMPHETAMINES,URINE NEGATIVE (NEGATIVE); NITRITE,URINE NEGATIVE (NEGATIVE); OCCULT BLOOD,URINE NEGATIVE (NEGATIVE); OPIATES,URINE NEGATIVE (NEGATIVE); OXYCODONE,URINE NEGATIVE (NEGATIVE); PHENCYCLIDINE,URINE NEGATIVE (NEGATIVE); PROTEIN,URINE NEGATIVE (NEGATIVE); TCA,URINE NEGATIVE (NEGATIVE); UROBILINOGEN,URINE 0.2 mg/dL (0.2-1.0)
[2024-03-24 02:55] LABS: A/G RATIO 0.8; ALANINE AMINOTRANSFERASE,ALT 27 U/L (14-59); ALBUMIN 3.6 g/dL (3.4-5.0); ALKALINE PHOSPHATASE 134 U/L (46-116); ANION GAP 13.9 mEq/L (7-13); ASPARTATE AMNIOTRANSFERASE,AST 30 U/L (15-37); BILIRUBIN TOTAL 0.6 mg/dL (0.2-1.0); BLOOD UREA NITROGEN,BUN 14 mg/dL (7-18); BUN/CREATININE RATIO 16.9 (No establ ref range); CALCIUM 9.4 mg/dL (8.5-10.1); CARBON DIOXIDE,CO2 23 mmol/L (21-32); CHLORIDE,CL 102 mmol/L (98-107); CREATININE 0.83 mg/dL (0.55-1.02); EST CRCL DRUG DOSING (CG) 79.28 mL/min; GLUCOSE RANDOM 90 mg/dL (70-99); LIPASE 57 U/L (16-77); MAGNESIUM 1.9 mg/dL (1.8-2.4); POTASSIUM,K 3.9 mmol/L (3.5-5.1); PROTEIN TOTAL,TP 8.4 g/dL (6.4-8.2); SODIUM,NA 135 mmol/L (136-145)
[2024-03-24 03:00] LABS: ESTIMATED GFR 88 mL/min (>=60); ETHANOL BLOOD MEDICAL < 3 mg/dL (0); PROTHROMBIN TIME 10.8 SEC (9.0-12.0)
[2024-03-24 03:11] VITALS: BP 136/86; PULSE 58
== END 2024-03-24 03:21 ==
LOC: DL.ED 01:58
DX: R07.2 Precordial pain (principal); I10 Essential (primary) hypertension; E03.9 Hypothyroidism, unspecified; E11.9 Type 2 diabetes mellitus without complications; Z90.49 Acquired absence of other specified parts of digestive tract; Z79.899 Other long term (current) drug therapy; Z88.8 Allergy status to other drugs, medicaments and biological substances; Z88.5 Allergy status to narcotic agent
CPT/HCPCS: 36415; 71045; 80053; 80305; 80307; 81003; 83690; 83735; 84484; 85025; 85610; 87635; 87804; 93005; 99285; A9270; U0002

== ENCOUNTER 2024-08-10 14:00 | Emergency (ER) | payer MEDICAID ==
[2024-08-10 16:03] VITALS: BP 158/94; PULSE 92
== END 2024-08-10 15:55 | disposition home or self-care (01) ==
LOC: DL.ED 14:00
DX: M79.605 Pain in left leg (principal); E11.9 Type 2 diabetes mellitus without complications; E03.9 Hypothyroidism, unspecified; Z90.49 Acquired absence of other specified parts of digestive tract; Z88.5 Allergy status to narcotic agent; Z88.8 Allergy status to other drugs, medicaments and biological substances; Z79.890 Hormone replacement therapy; Z79.899 Other long term (current) drug therapy
CPT/HCPCS: 93971; 99283

== ENCOUNTER 2024-08-12 22:43 | Emergency (ER) | payer MEDICAID ==
[2024-08-12 23:38] LABS: BASOPHILS PERCENT AUTO 0.7 % (0.0-1.0); EOSINOPHILS PERCENT AUTO 4.7 % (1.0-3.0); HEMATOCRIT 33.9 % (37.0-47.0); HEMOGLOBIN 11.5 g/dL (12.0-16.0); LYMPHOCYTES PERCENT AUTO 24.8 % (20.5-50.1); MEAN CORPUSCULAR HEMOGLOBIN 32.1 pg (27.0-34.0); MEAN CORPUSCULAR HGB CONC 33.9 g/dL (33.0-35.0); MEAN CORPUSCULAR VOLUME 94.7 fL (80-100); MONOCYTES PERCENT AUTO 17.7 % (2-8); NEUTROPHILS PERCENT AUTO 52.1 % (42.2-75.2); PLATELET COUNT,PLT 115 10^3/uL (150-450); RED BLOOD CELL COUNT 3.58 10^6/uL (4.2-5.4); WHITE BLOOD CELL COUNT,WBC 4.2 10^3/uL (5.0-10.0)
[2024-08-12 23:59] LABS: ALBUMIN 2.7 g/dL (3.4-5.0); ANION GAP 14.1 mEq/L (7-13); BILIRUBIN TOTAL 2.3 mg/dL (0.2-1.0); BUN/CREATININE RATIO 15.3 (No establ ref range); CALCIUM 8.4 mg/dL (8.5-10.1); CREATININE 0.98 mg/dL (0.55-1.02); EST CRCL DRUG DOSING (CG) 69.01 mL/min; MAGNESIUM 1.9 mg/dL (1.8-2.4); POTASSIUM,K 3.1 mmol/L (3.5-5.1); PROTEIN TOTAL,TP 7.4 g/dL (6.4-8.2)
[2024-08-13] LABS: A/G RATIO 0.57
[2024-08-13] MEDS: Potassium Chloride 10 MEQ Tab.ER PO ONE (00:11)
[2024-08-13] MEDS: Potassium Chloride 10 MEQ in Premix Bag 1 BAG IV ONE (00:11)
[2024-08-13 00:56] VITALS: BP 111/74; PULSE 67
== END 2024-08-13 01:21 | disposition home or self-care (01) ==
LOC: DL.ED 22:43
DX: M79.18 Myalgia, other site (principal); K70.31 Alcoholic cirrhosis of liver with ascites; E87.6 Hypokalemia; E03.9 Hypothyroidism, unspecified; E11.9 Type 2 diabetes mellitus without complications; F17.210 Nicotine dependence, cigarettes, uncomplicated; Z79.899 Other long term (current) drug therapy; Z88.5 Allergy status to narcotic agent
CPT/HCPCS: 36415; 80053; 82550; 83735; 85025; 96365; 99283; 99284; A9270; J3480